=== PATIENT | female | born 1995 | race American Indian/Alaskan Native ===

== ENCOUNTER 2021-08-04 21:24 | Emergency (ER) | payer MEDICAID ==
[2021-08-04 22:01] VITALS: BP 125/84
--- NOTE | 2021-08-04 22:56 | Emergency Department Report ---
Chief Complaint: Abdominal Pain Stated Complaint: ABDOMINAL PAIN/KNOT ON BELLY BUTTON Time Seen by Provider: 08/04/21 22:24 - HPI History of Present Illness: 26-year-old female patient presents to the emergency department complaints of a "knot" to her umbilicus. Patient states she noticed the "knot" for the first time today. Patient developed pain to her umbilical area while she was in class and was palpating her umbilicus when she noticed the "knot" was more painful when palpated. Patient had a vaginal delivery 19 months ago. No history of prior abdominal surgeries. Denies fever, chills, nausea, vomiting, diarrhea, constipation, urinary symptoms, vaginal bleeding, vaginal discharge. Denies all other complaints at this time. - ROS Review of Systems: GENERAL: Negative for fever. CARDIOVASCULAR: Negative for chest pain. PULMONARY: Negative for shortness of breath. GASTROINTESTINAL: Negative for vomiting. MUSCULOSKELETAL: Negative for back pain. NEUROLOGICAL: Negative for headache. INTEGUMENTARY: Negative for rash. - Exam Vital Signs: Vital Signs 08/04/21 21:56 Temperature 99.0 F Pulse Rate 95 H Respiratory 18 Rate Blood Pressure 125/84 O2 Sat by Pulse 96 Oximetry Physical Exam: General: Awake, appropriately interactive, no acute distress. Neck: Supple. Full range of motion intact. Cardiovascular: Normal peripheral perfusion. Pulmonary: No respiratory distress. Patient is speaking normally without use of accessory muscles. Abdomen: Soft, nontender, nondistended. Skin: Small tender subcutaneous nodule to the umbilicus at approximately 2:00 position without overlying warmth or erythema. Neurological: No facial asymmetry. Speech is clear. Follows commands. Patient is alert and oriented. Musculoskeletal: Moves all four extremities spontaneously with normal range of motion. Psych: Cooperative. Appropriate mood and affect. MSE screening note: Focused history and physical exam performed. Due to findings the following was ordered: ED Medical Decision Making - Medical Decision Making Patient presents to the emergency department with complaints of a painful subcutaneous nodule to her umbilical area which she noticed for the first time today. Patient is afebrile, hemodynamically stable, tolerating oral intake with out difficulty, no distress. No peritoneal signs on exam. Pain is localized to the nodule without surrounding abdominal tenderness. Patient has no associated symptoms. No clinical indication for emergent diagnostic evaluation. Patient has been advised to establish care with a local primary care provider for further evaluation on an outpatient basis. Patient expressed understanding and is agreeable to plan of care. Strict return precautions provided. BILLING/CODING: This patient encounter does not represent a certified medical emergency. ED Disposition for MSE Clinical Impression: Encounter for medical screening examination Disposition: HOME / SELF CARE / HOMELESS Is pt being admited?: No Does the pt Need Aspirin: No Condition: Stable Instructions: Abdominal Pain (ED), Medical Screening Exam Additional Instructions: Take Tylenol every 4 hours and Motrin every 8 hours as needed for pain. Follow-up with primary care provider this week for further diagnostic evaluation as needed on an outpatient basis. Call tomorrow to schedule an appointment. See referral information below. Avoid heavy lifting/pushing/pulling until otherwise instructed by your primary care provider. Return to the emergency department immediately for new or worsening symptoms. Specifically, return to the emergency department immediately for fever, vomiting, diarrhea, constipation, rectal bleeding, urinary symptoms, worsening abdominal pain, or any other concerns. Referrals: GERI IGLESIAS MD [Staff Physician] - 3-5 Days [facility] [Provider Group] - 3-5 Days [facility] [Outside] - 3-5 Days [facility] [Outside] - 3-5 Days [facility] [Outside] - 3-5 Days Time of Disposition: 22:57
== END 2021-08-04 23:52 | disposition home or self-care (01) ==
LOC: ED 21:24
DX: R10.33 Periumbilical pain (principal); Z00.00 Encounter for general adult medical examination without abnormal findings; R19.05 Periumbilic swelling, mass or lump
CPT/HCPCS: 99282